=== PATIENT | female | born 1990 | race Caucasian/White ===

== ENCOUNTER 2024-04-21 14:54 | Emergency (ER) | payer OTHER ==
[2024-04-21 15:09] VITALS: TEMP 97.2
[2024-04-21] MEDS ORDERED: Sodium Chloride 0.9% 1000 ML 1,000 ML ONE ×2 (15:37→19:03)
[2024-04-21] MEDS ORDERED: MORPHINE SULFATE 4 MG INJ ONE ×3 (15:37→21:17)
[2024-04-21] MEDS ORDERED: Zofran 4 MG/2 ML VIAL ONE ×2 (15:37→21:01)
[2024-04-21] MEDS: Sodium Chloride 0.9% 1000 ML 1,000 ML IV STA (15:39)
[2024-04-21] MEDS: Zofran 4 MG/2 ML VIAL IV ONE ×3 (15:40→21:22)
[2024-04-21] MEDS: MORPHINE SULFATE 4 MG INJ IV ONE ×3 (15:40→21:18)
[2024-04-21 15:48] LABS: Absolute Neutrophil Ct (ANC) 10.42 x10^3/uL (1.56-6.13); BASOPHIL % 0.4 % (0.1-1.2); Basophil (Absolute #) 0.05 x10^3/uL (0.01-0.08); Eosinophil % 0.3 % (0.7-5.8); Eosinophil (Absolute #) 0.04 x10^3/uL (0.04-0.36); Hematocrit 43.8 % (34.1-44.9); Hemoglobin 14.7 g/dL (11.2-15.7); IMMATURE GRAN # 0.03 x10^3u/L (0.001-0.031); IMMATURE GRAN % 0.2 % (0.001-0.429); Lymphocyte (Absolute #) 2.81 x10^3/uL (1.18-3.74); Lymphocytes % 20.4 % (19.3-51.7); Mean Cell Volume 89.6 fL (79.4-94.8); Mean Corpuscular Hemoglobin 30.1 pg (25.6-32.2); Mean Corpuscular Hgb Concent. 33.6 g/dL (32.2-35.5); Mean Platelet Volume 11.3 fL (9.4-12.3); Monocyte (Absolute #) 0.42 x10^3/uL (0.24-0.86); Monocytes % 3.1 % (4.7-12.5); Neutrophil % 75.6 % (34.0-71.1); Platelet Count 310 x10^3/uL (182-369); Red Blood Count 4.89 x10^6/uL (3.93-5.22); Red Cell Distribution Width 12.8 % (11.7-14.4); White Blood Count 13.8 x10^3/uL (3.98-10.04)
--- NOTE | 2024-04-21 15:50 | ERPHSYRPT ---
- History of Present Illness Time Seen by Provider: 04/21/24 14:56 Historian: patient Exam Limitations: no limitations Patient Subjective Stated Complaint: Left sided flank/abdominal pain Triage Nursing Assessment: Patient brought into ED per w/c and transferred self to bed. Patient A+O X3. Patient's skin pink, warm and dry. Patient Physician History: 34 years old female with history of kidney stones presented in the ER with left flank pain moderate to severe sharp shooting with radiation to the left groin for the last 2 days with progressive worsening. Patient report associated nausea and multiple episodes of nonprojectile, nonbilious vomiting. Reports increased urinary frequency, hesitancy and dysuria. Does report having some hematuria as well. No fever or chills reported. Allergies/Adverse Reactions: ibuprofen Adverse Reaction (Intermediate, Verified 04/21/24 15:05) Vomiting amoxicillin Adverse Reaction (Mild, Verified 04/21/24 15:05) Hives Penicillins Adverse Reaction (Mild, Verified 04/21/24 15:05) Hives Home Medications: No Reportable Medications [No Reported Medications] 04/21/24 [History] Hx Tetanus, Diphtheria Vaccination/Date Given: No Hx Influenza Vaccination/Date Given: No Hx Pneumococcal Vaccination/Date Given: No Immunizations Up to Date: Yes Travel Risk - International Travel Have you traveled outside of the country in past 3 weeks: No - Emerging Infectious Disease Are you exhibiting symptoms associated with any current EIDs: No - Review of Systems Constitutional: No Symptoms Eyes: No Symptoms Ears, Nose, & Throat: No Symptoms Respiratory: No Symptoms Cardiac: No Symptoms Abdominal/Gastrointestinal: Abdominal Pain, Nausea, Vomiting Genitourinary Symptoms: Flank Pain Musculoskeletal: No Symptoms Skin: No Symptoms Neurological: No Symptoms Endocrine: No Symptoms Hematologic/Lymphatic: No Symptoms Immunological/Allergic: No Symptoms - Past Medical History Pertinent Past Medical History: Yes Neurological History: No Pertinent History ENT History: No Pertinent History Cardiac History: Arrhythmia Respiratory History: No Pertinent History Endocrine Medical History: No Pertinent History Musculoskeletal History: No Pertinent History GI Medical History: Gallbladder Disease History: Other Psycho-Social History: Depression, Anxiety, Panic Disorder Female Reproductive Disorders: Other Other Medical History: anxiety, pannick attacks, tachycardia - Past Surgical History Past Surgical History: Yes Neuro Surgical History: No Pertinent History Cardiac: No Pertinent History Respiratory: No Pertinent History Gastrointestinal: Cholecystectomy Genitourinary: Other Musculoskeletal: No Pertinent History Female Surgical History: Tubal Ligation, Dilation & Curettage Other Surgical History: d and c, gallbladder, appendix kidney stone removal Significant Family History: no pertinent family hx - Female History Hx Last Menstrual Period: last week Hx Now: (unkn) - Social History Smoking Status: Never smoker How long have you smoked: 2 Exposure to second hand smoke: No Drug Use: marijuana Patient Lives Alone: No - Social Determinants of Health Will the patient participate in the screening: Yes Do you worry about a steady place to live?: No Do you have any problems with any of the following?: No known problems In the past 12 months,have you had to go without utilities?: No Transportation Issues: No Has anyone in your support network made you feel unsafe?: No Have you or anyone in your house had to go without enough: No - Nursing Vital Signs Nursing Vital Signs: Initial Vital Signs Blood Pressure 141/121 04/21/24 15:05 O2 Sat by Pulse Oximetry 91 L 04/21/24 15:05 Pain Scale Pain Intensity 10 - Physical Exam General Appearance: no apparent distress, alert Eye Exam: PERRL/EOMI Ears, Nose, Throat Exam: normal ENT inspection Neck Exam: normal inspection, supple, full range of motion Respiratory Exam: normal breath sounds, lungs clear Cardiovascular Exam: regular rate/rhythm, normal heart sounds Gastrointestinal/Abdomen Exam: soft, normal bowel sounds, tenderness (Left flank/left lower quadrant) Back Exam: normal inspection, normal range of motion, CVA tenderness (Left side) Extremity Exam: normal inspection, normal range of motion Neurologic Exam: alert, oriented x 3, cooperative Skin Exam: normal color SpO2 Interpretation: normal SpO2: 100 O2 Delivery: Room Air Ordered Tests: Active Orders 24 hr Category Date Time Status IV Insertion STAT Care 04/21/24 15:31 Active NPO (ED) STAT Care 04/21/24 15:31 Active cath [Cath for Specimen-Straight] STAT Care 04/21/24 15:35 Active ABDOMEN AND PELVIS W/0 CONTRAS [CT] Stat Exams 04/21/24 15:31 Completed CBC W DIFF Stat Lab 04/21/24 15:31 Completed CMP Stat Lab 04/21/24 16:05 Completed CULTURE,URINE Stat Lab 04/21/24 15:34 Received HCG QUALITATIVE, URINE Stat Lab 04/21/24 15:34 Completed LIPASE Stat Lab 04/21/24 16:05 Completed UA W/RFX UR CULTURE Stat Lab 04/21/24 15:34 Completed Medication Summary Generic Name Dose Route Start Last Admin Trade Name Yrn PRN Reason Stop Dose Admin Sodium Chloride 1,000 mls @ 125 mls/hr 04/21/24 19:15 04/21/24 19:04 Sodium Chloride 0.9% 1000 Ml IV 05/21/24 19:14 125 mls/hr .Q8H DANITA Administration Discontinued Medications Generic Name Dose Route Start Last Admin Trade Name Yrn PRN Reason Stop Dose Admin Sodium Chloride 1,000 mls @ 999 mls/hr 04/21/24 15:31 04/21/24 16:44 Sodium Chloride 0.9% 1000 Ml IV 04/21/24 16:31 Infused .Q1H1M STA Infusion Sodium Chloride Confirm 04/21/24 15:37 Sodium Chloride 0.9% 1000 Ml Administered 04/21/24 15:38 Dose 1,000 mls @ ud .ROUTE .STK-MED ONE Levofloxacin/Dextrose 750 mg in 150 mls @ 100 mls/hr 04/21/24 18:47 04/21/24 18:56 Levofloxacin 750mg/150ml D5w IV 04/21/24 20:16 100 mls/hr STAT STA 100 mls/hr Administration Levofloxacin/Dextrose Confirm 04/21/24 18:56 Levofloxacin 750mg/150ml D5w Administered 04/21/24 18:57 Dose 750 mg in 150 mls @ ud IV .STK-MED ONE Metoclopramide HCl 10 mg 04/21/24 16:56 04/21/24 17:08 Metoclopramide Hcl 10 Mg/2 Ml Vial IV 04/21/24 16:57 10 mg STAT ONE Administration Metoclopramide HCl Confirm 04/21/24 17:08 Metoclopramide Hcl 10 Mg/2 Ml Vial Administered 04/21/24 17:09 Dose 10 mg .ROUTE .STK-MED ONE Morphine Sulfate 4 mg 04/21/24 15:31 04/21/24 15:40 Morphine Sulfate 4 Mg/Ml Injection IV 04/21/24 15:32 4 mg STAT ONE Administration Morphine Sulfate Confirm 04/21/24 15:37 Morphine Sulfate 4 Mg/Ml Injection Administered 04/21/24 15:38 Dose 4 mg .ROUTE .STK-MED ONE Morphine Sulfate 4 mg 04/21/24 16:56 04/21/24 17:09 Morphine Sulfate 4 Mg/Ml Injection IV 04/21/24 16:57 4 mg STAT ONE Administration Morphine Sulfate Confirm 04/21/24 17:08 Morphine Sulfate 4 Mg/Ml Injection Administered 04/21/24 17:09 Dose 4 mg .ROUTE .STK-MED ONE Ondansetron HCl 4 mg 04/21/24 15:31 04/21/24 15:40 Ondansetron Hcl 4 Mg/2 Ml Vial IV 04/21/24 15:32 4 mg STAT ONE Administration Ondansetron HCl Confirm 04/21/24 15:37 Ondansetron Hcl 4 Mg/2 Ml Vial Administered 04/21/24 15:38 Dose 4 mg .ROUTE .STK-MED ONE Tamsulosin HCl 0.4 mg 04/21/24 17:18 04/21/24 17:26 Tamsulosin Hcl 0.4 Mg Cap PO 04/21/24 17:19 0.4 mg ONCE STA Administration Tamsulosin HCl Confirm 04/21/24 17:25 Tamsulosin Hcl 0.4 Mg Cap Administered 04/21/24 17:26 Dose 0.4 mg .ROUTE .STK-MED ONE Lab/Rad Data: Laboratory Result Diagrams 04/21/24 15:31 04/21/24 16:05 Laboratory Results 04/21/24 04/21/24 04/21/24 Range/Units 16:05 15:34 15:34 WBC (3.98-10.04) x10^3/uL RBC (3.93-5.22) x10^6/uL Hgb (11.2-15.7) g/dL Hct (34.1-44.9) % MCV (79.4-94.8) fL MCH (25.6-32.2) pg MCHC (32.2-35.5) g/dL RDW (11.7-14.4) % Plt Count (182-369) x10^3/uL MPV (9.4-12.3) fL Gran % (34.0-71.1) % Immature Gran % (Auto) (0.001-0.429) % Nucleat RBC Rel Count (0.00-0.2) % Eos # (Auto) (0.04-0.36) x10^3/uL Immature Gran # (Auto) (0.001-0.031) x10^3u/L Absolute Lymphs (auto) (1.18-3.74) x10^3/uL Absolute Monos (auto) (0.24-0.86) x10^3/uL Absolute Nucleated RBC (0.00-0.012) x10^3u/L Lymphocytes % (19.3-51.7) % Monocytes % (4.7-12.5) % Eosinophils % (0.7-5.8) % Basophils % (0.1-1.2) % Absolute Granulocytes (1.56-6.13) x10^3/uL Basophils # (0.01-0.08) x10^3/uL Sodium 138 (135-145) mmol/L Potassium 3.2 L (3.5-5.1) mmol/L Chloride 107 (98-107) mmol/L Carbon Dioxide 20 L (22-30) mmol/L Anion Gap 14.2 (5-15) MEQ/L BUN 14 (7-17) mg/dL Creatinine 0.92 (0.52-1.04) mg/dL Estimated GFR 82.8 ML/MIN Glucose 126 H (74-106) mg/dL Calcium 9.3 (8.4-10.2) mg/dL Total Bilirubin 0.80 (0.2-1.3) mg/dL AST 34 (14-36) U/L ALT 30 (0-35) U/L Alkaline Phosphatase 52 (38-126) U/L Serum Total Protein 7.2 (6.3-8.2) g/dL Albumin 4.2 (3.5-5.0) g/dL Lipase 45 (23-300) U/L Urine Color Yellow (Yellow) Urine Appearance Cloudy A (Clear) Urine pH 6.0 (4.6-8.0) Ur Specific [place] >=1.030 A (1.005-1.030) Urine Protein 100 A (Negative) Urine Glucose (UA) Negative (Negative) mg/dL Urine Ketones 15 A (Negative) Urine Blood Large A (Negative) Urine Nitrite Negative (Negative) Urine Bilirubin Negative (Negative) Urine Urobilinogen 1.0 A (0.2) mg/dL Ur Leukocyte Esterase Negative (Negative) U Hyaline Cast (Auto) 6-10 A (0-2) /LPF Urine Microscopic RBC >100 A (0-5) /HPF Urine Microscopic WBC 6-10 A (0-5) /HPF Ur Epithelial Cells Rare (None Seen) /HPF Urine Bacteria None Seen (None Seen) /HPF Urine Culture Reflexed YES (NO) Urine HCG, Qual NEGATIVE (NEGATIVE) 04/21/24 Range/Units 15:31 WBC 13.8 H (3.98-10.04) x10^3/uL RBC 4.89 (3.93-5.22) x10^6/uL Hgb 14.7 (11.2-15.7) g/dL Hct 43.8 (34.1-44.9) % MCV 89.6 (79.4-94.8) fL MCH 30.1 (25.6-32.2) pg MCHC 33.6 (32.2-35.5) g/dL RDW 12.8 (11.7-14.4) % Plt Count 310 (182-369) x10^3/uL MPV 11.3 (9.4-12.3) fL Gran % 75.6 H (34.0-71.1) % Immature Gran % (Auto) 0.2 (0.001-0.429) % Nucleat RBC Rel Count 0.0 (0.00-0.2) % Eos # (Auto) 0.04 (0.04-0.36) x10^3/uL Immature Gran # (Auto) 0.03 (0.001-0.031) x10^3u/L Absolute Lymphs (auto) 2.81 (1.18-3.74) x10^3/uL Absolute Monos (auto) 0.42 (0.24-0.86) x10^3/uL Absolute Nucleated RBC 0.00 (0.00-0.012) x10^3u/L Lymphocytes % 20.4 (19.3-51.7) % Monocytes % 3.1 L (4.7-12.5) % Eosinophils % 0.3 L (0.7-5.8) % Basophils % 0.4 (0.1-1.2) % Absolute Granulocytes 10.42 H (1.56-6.13) x10^3/uL Basophils # 0.05 (0.01-0.08) x10^3/uL Sodium (135-145) mmol/L Potassium (3.5-5.1) mmol/L Chloride (98-107) mmol/L Carbon Dioxide (22-30) mmol/L Anion Gap (5-15) MEQ/L BUN (7-17) mg/dL Creatinine (0.52-1.04) mg/dL Estimated GFR ML/MIN Glucose (74-106) mg/dL Calcium (8.4-10.2) mg/dL Total Bilirubin (0.2-1.3) mg/dL AST (14-36) U/L ALT (0-35) U/L Alkaline Phosphatase (38-126) U/L Serum Total Protein (6.3-8.2) g/dL Albumin (3.5-5.0) g/dL Lipase (23-300) U/L Urine Color (Yellow) Urine Appearance (Clear) Urine pH (4.6-8.0) Ur Specific [place] (1.005-1.030) Urine Protein (Negative) Urine Glucose (UA) (Negative) mg/dL Urine Ketones (Negative) Urine Blood (Negative) Urine Nitrite (Negative) Urine Bilirubin (Negative) Urine Urobilinogen (0.2) mg/dL Ur Leukocyte Esterase (Negative) U Hyaline Cast (Auto) (0-2) /LPF Urine Microscopic RBC (0-5) /HPF Urine Microscopic WBC (0-5) /HPF Ur Epithelial Cells (None Seen) /HPF Urine Bacteria (None Seen) /HPF Urine Culture Reflexed (NO) Urine HCG, Qual (NEGATIVE) - Progress Progress: improved, pain not gone completely, re-examined Progress Note: 04/21/24 18:44 34 years old is evaluated in the ER for left flank pain for the last 2 to 3 days with difficulty urination and nausea vomiting. She is given fluids and symptomatic treatment, on reevaluation she is feeling better. Workup showed white count of 13, chemistries with mildly low potassium and otherwise renal functions are normal. Questionable element of UTI, given a dose of antibiotics. CT showed 6-7 mm proximal left ureteral stone with partial obstruction. I believe patient will not be able to pass the stone and would need intervention by urology. I have called [facility] and no urology services are available. She is given Flomax. Will continue with fluids. We have called [facility] and is waiting on callback. I have shared the results of workup with patient and family and plan of transfer which they understand and agree. 04/21/24 20:[address] [facility] reviewed history, workup, agreed with transfer to hospitalist service. I [facility]ic [facility], reviewed history, workup, urology recommendation and patient is excepted for transfer. Counseled pt/family regarding: lab results, diagnosis, rad results Medical Desision Making - Independent Historian Additional History obtained from: Family - Discussion of managment Care discussed with:: specialist (Dr. Álvarez urology and Dr. Domenic ar[facility]) Reviewed:: Test results Agreed on:: Treatment plan Will see patient: in hospital - Diagnostic Testing Diagnostic test were ordered, analyzed, and reviewed by me: Yes Radiological Interpretation: Reviewed by me - Risk of complications The pt has a mod risk of morbidity or mortality based on: Need for prescription drug management, Need for minor surgical intervention in patient with know risk factors The pt has a high risk of morbidity or mortality based on: Decision regarding hospitilization or escalation of hosp level of care - Departure Departure Disposition: Transfer Clinical Impression: Obstructive uropathy Condition: Stable Critical Care Time: No Referrals: DOCTOR,NO FAMILY [Primary Care Provider] - Follow up/PCP as directed
[2024-04-21 15:52] LABS: HCG URINE TEST NEGATIVE (NEGATIVE)
[2024-04-21 16:01] LABS: Appearance Cloudy (Clear); Bacteria None Seen /HPF (None Seen); Bilirubin Negative (Negative); Blood Large (Negative); Epithelial Cells Rare /HPF (None Seen); Glucose, Urine Negative (Negative); Ketones 15 (Negative); Leukocyte Esterase Negative (Negative); Nitrite Negative (Negative); Protein,Urine Dip 100 (Negative); RBC >100 /HPF (0-5); Specific Gravity >=1.030 (1.005-1.030)
[2024-04-21 16:02] LABS: ADD URINE CULTURE? YES (NO)
[2024-04-21 16:20] LABS: ALBUMIN 4.2 g/dL (3.5-5.0); ANION GAP 14.2 MEQ/L (5-15); BILIRUBIN,TOTAL 0.8 mg/dL (0.2-1.3); Calcium 9.3 mg/dL (8.4-10.2); Creatinine 1 0.92 mg/dL (0.52-1.04); EST GLOMERULAR FILTRATION RATE 82.8 ML/MIN; Potassium 3.2 mmol/L (3.5-5.1); Total Protein 7.2 g/dL (6.3-8.2)
[2024-04-21] MEDS ORDERED: Reglan 10 MG/2 ML ONE (17:08)
[2024-04-21] MEDS: Reglan 10 MG/2 ML IV ONE (17:08)
--- NOTE | 2024-04-21 17:11 | XRAY ---
Indication: Left flank pain. Multiple contiguous axial images obtained through the abdomen and pelvis without contrast. Comparison: April 06, 2019 Lung bases clear. Heart not enlarged. Noncontrasted stomach and bowel loops appear nonobstructed. Appendectomy and cholecystectomy. No free fluid/air. New 6-7 mm calculus proximal left ureter, approximately L2 level. Mild left hydronephrosis consistent with partial obstructive uropathy. Uterus again demonstrates incidental 2 cm cervical nabothian cyst. Remaining liver, pancreas, spleen, general glands, right kidney, right ureter, bladder, uterus, and aorta are unremarkable for noncontrast exam. Osseous structures intact. Impression: 1. New 6-7 mm proximal left ureter calculus producing partial obstructive uropathy. 2. Again incidental uterine nabothian cyst. 3. Remaining CT abdomen/pelvis without contrast exam is negative.
[2024-04-21] MEDS ORDERED: Flomax 0.4 MG ONE (17:25)
[2024-04-21] MEDS: Flomax 0.4 MG PO STA (17:26)
[2024-04-21] MEDS ORDERED: LEVOFLOXACIN 750MG/150ML D5W 750 MG/150 ML BAG IV ONE (18:56)
[2024-04-21] MEDS: LEVOFLOXACIN 750MG/150ML D5W 750 MG/150 ML BAG IV STA (18:56)
[2024-04-21] MEDS: Sodium Chloride 0.9% 1000 ML 1,000 ML IV SCH (19:04)
[2024-04-21 20:20] VITALS: O2SAT 100
[2024-04-21 21:05] VITALS: BP 114/69; PULSE 52; RESP 16
== END 2024-04-21 21:35 | disposition short-term general hospital (02) ==
LOC: ED 14:54
DX: N13.9 Obstructive and reflux uropathy, unspecified (principal); R10.9 Unspecified abdominal pain; R11.2 Nausea with vomiting, unspecified; R30.0 Dysuria
CPT/HCPCS: 36000; 36415; 74176; 80053; 81001; 81025; 83690; 85025; 87086; 96360; 96365; 96366; 96374; 96375; 96376; 99285; P9612; J1956; J2270; J2405; A9270-GY